=== PATIENT | female | born 1955 | race Asian ===

== ENCOUNTER 2019-05-05 14:48 | Outpatient (CLI) | payer BC | END 2019-05-05 21:38 | disposition home or self-care (01) | LOC: MAMMO 14:48 | DX: Z12.31 Encounter for screening mammogram for malignant neoplasm of breast (principal); M85.80 Other specified disorders of bone density and structure, unspecified site ==

== ENCOUNTER 2019-11-20 15:17 | Emergency (ER) | payer OTHER ==
[~2019-11-20] VITALS: Ht 162.6 cm; Wt 63.0 kg
[2019-11-20 15:34] VITALS: BP 132/52; TEMP 99.1
== END 2019-11-20 16:24 | disposition home or self-care (01) ==
LOC: ED 15:17
PROC: 2W3MX1Z Immobilization of Left Lower Extremity using Splint (ICD-10-PCS; principal; 2019-11-20)
DX: S82.092A Other fracture of left patella, initial encounter for closed fracture (principal); W18.39XA Other fall on same level, initial encounter; Y92.89 Other specified places as the place of occurrence of the external cause
CPT/HCPCS: 96372; 99283; J1885

== ENCOUNTER 2020-05-13 08:42 | Outpatient (CLI) | payer BC | END 2020-05-13 20:04 | disposition home or self-care (01) | LOC: MAMMO 08:42 | PROVIDERS: ATTEND Nurse Practitioner Family | DX: Z12.31 Encounter for screening mammogram for malignant neoplasm of breast (principal); N95.8 Other specified menopausal and perimenopausal disorders ==

== ENCOUNTER 2021-06-06 07:53 | Outpatient (CLI) | payer BC | END 2021-06-06 19:03 | disposition home or self-care (01) | LOC: RAD 07:53 | PROVIDERS: ATTEND Nurse Practitioner Family | DX: M85.80 Other specified disorders of bone density and structure, unspecified site (principal); N95.8 Other specified menopausal and perimenopausal disorders; Z12.31 Encounter for screening mammogram for malignant neoplasm of breast ==

== ENCOUNTER 2022-09-15 07:26 | Outpatient (CLI) | payer OTHER | END 2022-09-15 19:08 | disposition home or self-care (01) | LOC: MAMMO 07:26 | PROVIDERS: ATTEND Internal Medicine | DX: Z12.31 Encounter for screening mammogram for malignant neoplasm of breast (principal) ==